=== PATIENT | female | born 1950 | race Caucasian/White ===

== ENCOUNTER → 2017-11-19 | Outpatient (CLI) | payer MEDICARE | END | disposition home or self-care (01) | LOC: CDC 10:21 | DX: Z01.810 Encounter for preprocedural cardiovascular examination (principal); M25.562 Pain in left knee; S83.242D Other tear of medial meniscus, current injury, left knee, subsequent encounter; R00.1 Bradycardia, unspecified | CPT/HCPCS: 93000 ==

== ENCOUNTER → 2018-05-10 | Outpatient (CLI) | payer MEDICARE | END | disposition home or self-care (01) | LOC: CDC 09:29 | DX: R00.1 Bradycardia, unspecified (principal); M25.532 Pain in left wrist; G56.03 Carpal tunnel syndrome, bilateral upper limbs; G56.23 Lesion of ulnar nerve, bilateral upper limbs; M18.12 Unilateral primary osteoarthritis of first carpometacarpal joint, left hand | CPT/HCPCS: 93000 ==